=== PATIENT | female | born 1955 | race Caucasian/White ===

== ENCOUNTER 2017-07-12 17:31 | Emergency (ER) | payer OTHER ==
[~2017-07-12] VITALS: Ht 160 cm; Wt 69.6 kg
[~2017-07-12 17:31] MED LIST: ACT30 PO; ALDACTONE25 MG PO; ANT25 PO; ASPIR 8181 MG PO; CAR30 PO; CARVEDILOL3.125 M1 PO; GARLIC1000 MG PO; GLU500 PO; HUMI SC; INVOKANA100 MG PO; K10 PO; LAC PO; LANTI SQ; LASIX40 MG PO; LEVAQUIN750 MG PO; LEVEMIR FLEX100 U/ML SC; LIPI20 PO; MASON NATURAL1000 IU PO; METOPROLOL SUCC25 M1 PO; PLA75 PO; PRAVACHOL20 MG PO; PRI20 PO; PROINH INH; RES30 PO; TRE400 PO; ZES10 PO
[2017-07-12 18:40] VITALS: BP 144/77
== END 2017-07-12 18:41 | disposition home or self-care (01) ==
LOC: ED 17:31
DX: S16.1XXA Strain of muscle, fascia and tendon at neck level, initial encounter (principal); S09.90XA Unspecified injury of head, initial encounter; X58.XXXA Exposure to other specified factors, initial encounter; Y93.89 Activity, other specified; Y99.8 Other external cause status; Y92.89 Other specified places as the place of occurrence of the external cause

== ENCOUNTER 2017-07-14 12:41 | Emergency (ER) | payer OTHER ==
[2017-07-14 14:28] VITALS: BP 158/62
== END 2017-07-14 14:28 | disposition home or self-care (01) ==
LOC: ED 12:41
DX: S13.4XXA Sprain of ligaments of cervical spine, initial encounter (principal); I10 Essential (primary) hypertension; E11.9 Type 2 diabetes mellitus without complications; I25.10 Atherosclerotic heart disease of native coronary artery without angina pectoris; Z90.710 Acquired absence of both cervix and uterus; Z98.890 Other specified postprocedural states; Z88.8 Allergy status to other drugs, medicaments and biological substances; W22.01XA Walked into wall, initial encounter; Y93.02 Activity, running; Y92.89 Other specified places as the place of occurrence of the external cause; Y99.8 Other external cause status
CPT/HCPCS: J1885

== ENCOUNTER 2017-08-29 19:42 | Emergency (ER) | payer OTHER ==
[2017-08-29 21:40] LABS: BASOPHIL % 0.3 % (0-2)
[2017-08-29 21:44] LABS: PLATELET COUNT 456 x10^3mcL (130-400); RED CELL DISTRIBUTION WIDTH 14.6 % (11.5-14.5)
[2017-08-29 21:53] LABS: CALCIUM 9.2 mg/dL (8.5-10.1); CARBON DIOXIDE 29.4 mmol/L (21-32); POTASSIUM SERUM 3.9 mmol/L (3.5-5.1)
[2017-08-29 21:57] LABS: ALBUMIN 3.4 g/dL (3.4-5.0); BILIRUBIN TOTAL 0.37 mg/dL (0.20-1.00)
[2017-08-29 21:58] LABS: TOTAL PROTEIN, SERUM 8.7 g/dL (6.4-8.2)
[2017-08-30 01:30] VITALS: BP 131/74
== END 2017-08-30 01:30 | disposition home or self-care (01) ==
LOC: ED 19:42
PROVIDERS: Emergency Medicine
DX: R07.89 Other chest pain (principal); M54.9 Dorsalgia, unspecified; M54.2 Cervicalgia; M54.12 Radiculopathy, cervical region; R51 Headache; I10 Essential (primary) hypertension; E11.9 Type 2 diabetes mellitus without complications; E78.00 Pure hypercholesterolemia, unspecified; Z79.4 Long term (current) use of insulin; Z88.8 Allergy status to other drugs, medicaments and biological substances
CPT/HCPCS: J1885; J2270; J2405; J7030; Q9967

== ENCOUNTER 2017-12-07 19:34 | Inpatient (IN) | payer OTHER ==
[~2017-12-07] VITALS: Ht 157.5 cm; Wt 63.5 kg
[2017-12-07 19:39] VITALS: Ht 157.5 cm; Wt 63.5 kg
[2017-12-07 21:22] LABS: BASOPHIL % 0.4 % (0-2)
[2017-12-07 21:23] LABS: PLATELET COUNT 419 x10^3mcL (130-400); RED CELL DISTRIBUTION WIDTH 14.7 % (11.5-14.5)
[2017-12-07 21:28] LABS: CALCIUM 8.3 mg/dL (8.5-10.1); CARBON DIOXIDE 28.8 mmol/L (21-32); CHLORIDE SERUM 96 mmol/L (98-107); CREATININE SERUM 0.9 mg/dL (0.6-1.0); GFR1 > 60 mL/min; GLUCOSE SERUM 326 mg/dL (74-106); POTASSIUM SERUM 3.8 mmol/L (3.5-5.1); SODIUM SERUM 135 mmol/L (136-145)
[2017-12-07 21:33] LABS: ALKALINE PHOSPHATASE 99 U/L (46-116); ALT/SGPT 32 U/L (14-59); AST/SGOT 17 U/L (15-37); BILIRUBIN TOTAL 0.2 mg/dL (0.20-1.00); MAGNESIUM 1.8 mg/dL (1.8-2.4); TOTAL PROTEIN, SERUM 7.9 g/dL (6.4-8.2)
[2017-12-07 21:34] LABS: ALBUMIN 3.3 g/dL (3.4-5.0)
[2017-12-07 22:02] LABS: T3 TOTAL 1.2 ng/mL
[2017-12-07 22:17] LABS: FREE T4 1.07 ng/dL (0.76-1.46); FREE THYROXINE INDEX 2.7 ug/dL (1.4-4.5); T4(THYROXINE) 8.1 ug/dL (4.7-13.3)
[2017-12-07] MEDS ORDERED: JANUVIA100 M1 PO (23:18)
[2017-12-07] MEDS ORDERED: NITROGLYCERIN0.4 MG SL (23:18)
[2017-12-07] MEDS ORDERED: PANTOPRAZOLE SO40 M1 PO (23:18)
[2017-12-07] MEDS ORDERED: ISOSORBIDE MONO30 MG PO (23:18)
[2017-12-07] MEDS ORDERED: ROBAXIN-750750 MG PO (23:19)
[2017-12-07] MEDS ORDERED: LOSARTAN POTASS25 M1 PO (23:19)
[2017-12-07] MEDS ORDERED: NEU300 PO (23:19)
[2017-12-07] MEDS ORDERED: HYDRALAZINE HCL25 MG PO (23:19)
[2017-12-07] MEDS ORDERED: LANTUS100 U/ML SQ (23:20)
[2017-12-07] MEDS ORDERED: TRAMADOL HCL50 MG PO (23:20)
[2017-12-08] VITALS (7 sets, daily range): BP systolic 102–147; BP diastolic 53–68
[2017-12-08 01:06] LABS: PHOSPHOROUS 3.3 mg/dL (2.5-4.9)
[2017-12-08 01:11] LABS: CHOLESTEROL/HDL RATIO 5.8
[2017-12-08 06:51] LABS: BASOPHIL % 0.4 % (0-2); PLATELET COUNT 397 x10^3mcL (130-400)
[2017-12-08 07:07] LABS: RED CELL DISTRIBUTION WIDTH 14.7 % (11.5-14.5)
[2017-12-08 07:28] LABS: CALCIUM 8.1 mg/dL (8.5-10.1); CARBON DIOXIDE 27.1 mmol/L (21-32); CHLORIDE SERUM 100 mmol/L (98-107); CREATININE SERUM 0.7 mg/dL (0.6-1.0); GFR1 > 60 mL/min; GLUCOSE SERUM 264 mg/dL (74-106); POTASSIUM SERUM 4.4 mmol/L (3.5-5.1); SODIUM SERUM 136 mmol/L (136-145)
== END 2017-12-08 22:33 | disposition home or self-care (01) | DRG 198 ==
LOC: ED 19:34 → DU 23:09
PROVIDERS: Emergency Medicine; Family Medicine
DX: I25.119 Atherosclerotic heart disease of native coronary artery with unspecified angina pectoris (principal); E11.51 Type 2 diabetes mellitus with diabetic peripheral angiopathy without gangrene; R65.10 Systemic inflammatory response syndrome (SIRS) of non-infectious origin without acute organ dysfunction; E11.65 Type 2 diabetes mellitus with hyperglycemia; E44.1 Mild protein-calorie malnutrition; Z88.8 Allergy status to other drugs, medicaments and biological substances; G90.8 Other disorders of autonomic nervous system; E11.40 Type 2 diabetes mellitus with diabetic neuropathy, unspecified; I10 Essential (primary) hypertension; E78.00 Pure hypercholesterolemia, unspecified; Z90.710 Acquired absence of both cervix and uterus; Z87.891 Personal history of nicotine dependence; R00.8 Other abnormalities of heart beat; J44.9 Chronic obstructive pulmonary disease, unspecified; Z83.3 Family history of diabetes mellitus; E87.1 Hypo-osmolality and hyponatremia; Z68.27 Body mass index [BMI] 27.0-27.9, adult
CPT/HCPCS: 82962; 83880; 84439; J1815; J2270; J2405; J3475; J7030; J8597; Q0092

== ENCOUNTER 2018-05-10 17:38 | Inpatient (IN) | payer OTHER ==
[~2018-05-10] VITALS: Ht 157.5 cm; Wt 70.9 kg
[~2018-05-10 17:38] MED LIST changes: +HYDRALAZINE HCL25 MG PO; +ISOSORBIDE MONO30 MG PO; +JANUVIA100 M1 PO; +LANTUS100 U/ML SQ; +LOSARTAN POTASS25 M1 PO; +NEU300 PO; +NITROGLYCERIN0.4 MG SL; +PANTOPRAZOLE SO40 M1 PO; +ROBAXIN-750750 MG PO; +TRAMADOL HCL50 MG PO
[2018-05-10 17:41] VITALS: Ht 157.5 cm; Wt 70.9 kg
[2018-05-10 19:52] LABS: UA SPECIFIC GRAVITY 1.025 (1.005-1.035); microscopic required? YES; urine erythrocyte NEGATIVE (NEGATIVE)
[2018-05-10 20:20] LABS: CALCIUM 9.2 mg/dL (8.5-10.1); CARBON DIOXIDE 28.2 mmol/L (21-32); CHLORIDE SERUM 99 mmol/L (98-107); CREATININE SERUM 0.7 mg/dL (0.6-1.0); GFR1 > 60 mL/min; GLUCOSE SERUM 189 mg/dL (74-106); POTASSIUM SERUM 3.8 mmol/L (3.5-5.1); SODIUM SERUM 137 mmol/L (136-145)
[2018-05-10 20:25] LABS: ALBUMIN 3.5 g/dL (3.4-5.0); ALKALINE PHOSPHATASE 119 U/L (46-116); ALT/SGPT 36 U/L (14-59); AST/SGOT 18 U/L (15-37); BASOPHIL % 0.4 % (0-2); BILIRUBIN TOTAL 0.36 mg/dL (0.20-1.00); LIPASE 120 IU/L (73-393); PLATELET COUNT 394 x10^3mcL (130-400)
[2018-05-10 20:26] LABS: TOTAL PROTEIN, SERUM 8.3 g/dL (6.4-8.2)
[2018-05-10] MEDS ORDERED: ZETIA10 M1 PO (21:20)
[2018-05-10] MEDS ORDERED: REPATHA SY140 MG/1 M SQ (21:20)
[2018-05-10] MEDS ORDERED: ISOSORBIDE MONO30 MG PO (21:21)
[2018-05-10] MEDS ORDERED: HYDRALAZINE HCL25 MG PO (21:21)
[2018-05-10 21:46] LABS: MAGNESIUM 1.9 mg/dL (1.8-2.4); PHOSPHOROUS 3.1 mg/dL (2.5-4.9)
[2018-05-10 21:47] LABS: CHOLESTEROL/HDL RATIO 3.2
[2018-05-10 21:50] LABS: T3 TOTAL 1.13 ng/mL
[2018-05-10 21:57] LABS: FREE T4 1.01 ng/dL (0.76-1.46); FREE THYROXINE INDEX 2.6 ug/dL (1.4-4.5); T4(THYROXINE) 7.5 ug/dL (4.7-13.3)
[2018-05-10 21:59] VITALS: BP 147/55
[2018-05-10 23:00] VITALS: BP 147/55
[2018-05-11 01:00] LABS: AMPHETAMINE QUAL UR NONE DETECTED (See below)
[2018-05-11 04:40] LABS: BASOPHIL % 0.3 % (0-2); PLATELET COUNT 379 x10^3mcL (130-400); RED CELL DISTRIBUTION WIDTH 13.8 % (11.5-14.5)
[2018-05-11 05:14] LABS: CALCIUM 8.5 mg/dL (8.5-10.1); CARBON DIOXIDE 27.5 mmol/L (21-32); CHLORIDE SERUM 105 mmol/L (98-107); CREATININE SERUM 0.7 mg/dL (0.6-1.0); GFR1 > 60 mL/min; GLUCOSE SERUM 160 mg/dL (74-106); POTASSIUM SERUM 4.3 mmol/L (3.5-5.1); SODIUM SERUM 142 mmol/L (136-145)
[2018-05-11 09:36] VITALS: BP 141/68
[2018-05-11 13:25] VITALS: BP 133/69
[2018-05-11 16:37] VITALS: BP 101/56
[2018-05-11 20:59] VITALS: BP 127/65
[2018-05-12 06:10] VITALS: BP 140/61
[2018-05-12 06:24] LABS: BASOPHIL % 0.4 % (0-2); PLATELET COUNT 365 x10^3mcL (130-400); RED CELL DISTRIBUTION WIDTH 14.3 % (11.5-14.5)
[2018-05-12 08:40] VITALS: BP 139/71
[2018-05-12 11:35] VITALS: BP 144/77
[2018-05-12 16:58] VITALS: BP 116/63
[2018-05-12 17:39] VITALS: BP 116/63
== END 2018-05-12 18:22 | disposition home or self-care (01) | DRG 198 ==
LOC: ED 17:38 → DU 21:09
PROVIDERS: Emergency Medicine; Family Medicine
DX: I25.119 Atherosclerotic heart disease of native coronary artery with unspecified angina pectoris (principal); N17.0 Acute kidney failure with tubular necrosis; E11.51 Type 2 diabetes mellitus with diabetic peripheral angiopathy without gangrene; J44.1 Chronic obstructive pulmonary disease with (acute) exacerbation; E78.5 Hyperlipidemia, unspecified; G47.33 Obstructive sleep apnea (adult) (pediatric); E11.65 Type 2 diabetes mellitus with hyperglycemia; E78.1 Pure hyperglyceridemia; I25.2 Old myocardial infarction; Z79.4 Long term (current) use of insulin; Z68.28 Body mass index [BMI] 28.0-28.9, adult; Z95.5 Presence of coronary angioplasty implant and graft; Z86.73 Personal history of transient ischemic attack (TIA), and cerebral infarction without residual deficits; I11.0 Hypertensive heart disease with heart failure; E78.00 Pure hypercholesterolemia, unspecified; Z90.710 Acquired absence of both cervix and uterus; Z87.891 Personal history of nicotine dependence; S90.561A Insect bite (nonvenomous), right ankle, initial encounter; W57.XXXA Bitten or stung by nonvenomous insect and other nonvenomous arthropods, initial encounter; Y93.89 Activity, other specified; Y92.89 Other specified places as the place of occurrence of the external cause; Y99.8 Other external cause status; K21.9 Gastro-esophageal reflux disease without esophagitis; Z83.3 Family history of diabetes mellitus; I25.5 Ischemic cardiomyopathy; K76.0 Fatty (change of) liver, not elsewhere classified; K82.4 Cholesterolosis of gallbladder
CPT/HCPCS: 83880; 84439; 94150; A9500; J1815; J2785; J7030; J7613; J7620; J7644; Q0092; Q0162; Q0163

== ENCOUNTER 2018-06-12 08:27 | Inpatient (IN) | payer OTHER ==
[~2018-06-12] VITALS: Ht 157.5 cm; Wt 70.0 kg
[~2018-06-12 08:27] MED LIST changes: +REPATHA SY140 MG/1 M SQ; +ZETIA10 M1 PO
[2018-06-12 08:32] VITALS: Ht 157.5 cm; Wt 70.0 kg
[2018-06-12 09:17] LABS: BASOPHIL % 0.5 % (0-2); PLATELET COUNT 371 x10^3mcL (130-400); RED CELL DISTRIBUTION WIDTH 14.4 % (11.5-14.5)
[2018-06-12 09:46] LABS: T3 TOTAL 1.12 ng/mL
[2018-06-12 09:56] LABS: CALCIUM 8.5 mg/dL (8.5-10.1); CARBON DIOXIDE 24.6 mmol/L (21-32); CHLORIDE SERUM 103 mmol/L (98-107); CREATININE SERUM 0.8 mg/dL (0.6-1.0); GFR1 > 60 mL/min; GLUCOSE SERUM 180 mg/dL (74-106); SODIUM SERUM 140 mmol/L (136-145)
[2018-06-12 10:01] LABS: ALBUMIN 3.3 g/dL (3.4-5.0); ALKALINE PHOSPHATASE 105 U/L (46-116); ALT/SGPT 43 U/L (14-59); AST/SGOT 28 U/L (15-37); BILIRUBIN TOTAL 0.58 mg/dL (0.20-1.00); CHOLESTEROL 104 mg/dL (<200); CHOLESTEROL/HDL RATIO 2.7; HDL CHOLESTEROL 38 mg/dL (40-60); LIPASE 82 IU/L (73-393); TOTAL PROTEIN, SERUM 7.8 g/dL (6.4-8.2); TRIGLYCERIDES 191 mg/dL (<150)
[2018-06-12 10:16] LABS: FREE T4 0.99 ng/dL (0.76-1.46); FREE THYROXINE INDEX 2.7 ug/dL (1.4-4.5); T4(THYROXINE) 8.1 ug/dL (4.7-13.3)
[2018-06-12 11:58] LABS: PHOSPHOROUS 3.6 mg/dL (2.5-4.9)
[2018-06-12 13:18] VITALS: BP 122/43
[2018-06-12 13:43] VITALS: BP 117/50
[2018-06-12 14:57] LABS: UA SPECIFIC GRAVITY 1.025 (1.005-1.035); microscopic required? YES; urine erythrocyte TRACE (NEGATIVE)
[2018-06-12 17:05] VITALS: BP 118/72
[2018-06-12 20:27] VITALS: BP 132/75
[2018-06-13 05:29] VITALS: BP 122/68
[2018-06-13 06:39] LABS: BASOPHIL % 0.5 % (0-2); PLATELET COUNT 378 x10^3mcL (130-400); RED CELL DISTRIBUTION WIDTH 13.9 % (11.5-14.5)
[2018-06-13 06:52] LABS: CALCIUM 8.5 mg/dL (8.5-10.1); CARBON DIOXIDE 26.5 mmol/L (21-32); CHLORIDE SERUM 106 mmol/L (98-107); CREATININE SERUM 0.6 mg/dL (0.6-1.0); GFR1 > 60 mL/min; GLUCOSE SERUM 107 mg/dL (74-106); POTASSIUM SERUM 3.7 mmol/L (3.5-5.1); SODIUM SERUM 140 mmol/L (136-145)
[2018-06-13 09:09] VITALS: BP 133/79
[2018-06-13] MEDS ORDERED: TOP50 PO (11:45)
[2018-06-13 12:10] VITALS: BP 133/79
[2018-06-13 12:15] VITALS: BP 106/57
== END 2018-06-13 13:45 | disposition home or self-care (01) | DRG 207 ==
LOC: ED 08:27 → DU 10:23
PROVIDERS: Internal Medicine; Specialist
DX: R00.8 Other abnormalities of heart beat (principal); I11.0 Hypertensive heart disease with heart failure; I50.22 Chronic systolic (congestive) heart failure; E11.65 Type 2 diabetes mellitus with hyperglycemia; D72.829 Elevated white blood cell count, unspecified; I25.10 Atherosclerotic heart disease of native coronary artery without angina pectoris; I25.5 Ischemic cardiomyopathy; E78.5 Hyperlipidemia, unspecified; G47.30 Sleep apnea, unspecified; E44.1 Mild protein-calorie malnutrition; Z88.8 Allergy status to other drugs, medicaments and biological substances; I25.2 Old myocardial infarction; E78.00 Pure hypercholesterolemia, unspecified; Z90.710 Acquired absence of both cervix and uterus; Z98.61 Coronary angioplasty status; Z86.73 Personal history of transient ischemic attack (TIA), and cerebral infarction without residual deficits; Z68.27 Body mass index [BMI] 27.0-27.9, adult
CPT/HCPCS: 83880; 84439; J1644; J1815; J3010; J3490; J7030; Q0092

== ENCOUNTER 2018-10-13 17:58 | Emergency (ER) | payer OTHER ==
[~2018-10-13] VITALS: Ht 157.5 cm; Wt 70.8 kg
[~2018-10-13 17:58] MED LIST changes: +TOP50 PO
[2018-10-13 18:13] VITALS: Ht 157.5 cm; Wt 70.8 kg
[2018-10-13 19:46] LABS: BASOPHIL % 0.8 % (0-2); PLATELET COUNT 369 x10^3mcL (130-400); RED CELL DISTRIBUTION WIDTH 13.9 % (11.5-14.5)
[2018-10-13 20:14] LABS: CALCIUM 8.7 mg/dL (8.5-10.1); CARBON DIOXIDE 27.5 mmol/L (21-32); CHLORIDE SERUM 101 mmol/L (98-107); CREATININE SERUM 0.7 mg/dL (0.6-1.0); GFR1 > 60 mL/min; GLUCOSE SERUM 157 mg/dL (74-106); POTASSIUM SERUM 3.4 mmol/L (3.5-5.1); SODIUM SERUM 135 mmol/L (136-145)
[2018-10-13 20:19] LABS: ALBUMIN 3.4 g/dL (3.4-5.0); ALKALINE PHOSPHATASE 123 U/L (46-116); ALT/SGPT 39 U/L (14-59); AST/SGOT 24 U/L (15-37); BILIRUBIN TOTAL 0.27 mg/dL (0.20-1.00); TOTAL PROTEIN, SERUM 8.1 g/dL (6.4-8.2)
[2018-10-13 21:37] VITALS: BP 117/75
== END 2018-10-13 21:37 | disposition home or self-care (01) ==
LOC: ED 17:58
PROVIDERS: Emergency Medicine
DX: N39.0 Urinary tract infection, site not specified (principal); R91.1 Solitary pulmonary nodule; I10 Essential (primary) hypertension; E11.9 Type 2 diabetes mellitus without complications; I25.2 Old myocardial infarction; E78.00 Pure hypercholesterolemia, unspecified; Z90.710 Acquired absence of both cervix and uterus; Z88.8 Allergy status to other drugs, medicaments and biological substances
CPT/HCPCS: 83880; 85378; J1885

== ENCOUNTER 2019-04-05 14:37 | Emergency (ER) | payer OTHER ==
[~2019-04-05] VITALS: Ht 162.6 cm; Wt 70.3 kg
[~2019-04-05 14:37] MED LIST changes: +ISOSORBIDE MONO60 MG PO
[2019-04-05 14:39] VITALS: Ht 162.6 cm; Wt 70.3 kg
[2019-04-05 16:38] LABS: BASOPHIL % 0.3 % (0-2); PLATELET COUNT 400 x10^3mcL (130-400); RED CELL DISTRIBUTION WIDTH 13.7 % (11.5-14.5)
[2019-04-05 16:58] LABS: CALCIUM 8.8 mg/dL (8.5-10.1); CHLORIDE SERUM 104 mmol/L (98-107); CREATININE SERUM 0.7 mg/dL (0.6-1.0); GFR1 > 60 mL/min; GLUCOSE SERUM 89 mg/dL (74-106); POTASSIUM SERUM 3.6 mmol/L (3.5-5.1); SODIUM SERUM 141 mmol/L (136-145)
[2019-04-05 17:03] LABS: ALKALINE PHOSPHATASE 103 U/L (46-116); ALT/SGPT 37 U/L (14-59); AST/SGOT 19 U/L (15-37); BILIRUBIN TOTAL 0.3 mg/dL (0.20-1.00); LIPASE 64 IU/L (73-393); TOTAL PROTEIN, SERUM 7.5 g/dL (6.4-8.2)
[2019-04-05 17:05] LABS: ALBUMIN 3.3 g/dL (3.4-5.0)
[2019-04-05 18:52] VITALS: BP 130/68
== END 2019-04-05 18:52 | disposition home or self-care (01) ==
LOC: ED 14:37
PROVIDERS: Emergency Medicine
DX: N39.0 Urinary tract infection, site not specified (principal); R42 Dizziness and giddiness; R07.89 Other chest pain; I10 Essential (primary) hypertension; E11.9 Type 2 diabetes mellitus without complications; I25.2 Old myocardial infarction; E78.00 Pure hypercholesterolemia, unspecified; Z90.710 Acquired absence of both cervix and uterus; Z88.8 Allergy status to other drugs, medicaments and biological substances
CPT/HCPCS: J0696; J1885; J2405; J7030; J8597; Q0092

== ENCOUNTER 2019-05-17 12:34 | Inpatient (IN) | payer OTHER ==
[~2019-05-17] VITALS: Ht 157.5 cm; Wt 69.9 kg
--- NOTE | 2019-05-17 13:07 | NUR ---
PT HERE FOR ABD PAIN 10/. N/V STARTED LAST NIGHT. PT HAS ROUND RIGID ABD FIRM TO TOUCH WITH 10/10 TENDERNESS. PT HAS HX OF CURRENT HERNIA. DENIES PAIN WITH URINATION AND NO C/O DIARRHEA OR CONSTIPATION. PT ARRIVES ALERT AND ORIENTED WITH NO DISTRESS AND VSS. URINE OBTAINED.
[2019-05-17 13:12] LABS: BASOPHIL % 0.3 % (0-2); PLATELET COUNT 373 x10^3mcL (130-400); RED CELL DISTRIBUTION WIDTH 13.9 % (11.5-14.5)
[2019-05-17 13:24] LABS: CALCIUM 8.7 mg/dL (8.5-10.1); CARBON DIOXIDE 25.4 mmol/L (21-32); CHLORIDE SERUM 101 mmol/L (98-107); CREATININE SERUM 0.9 mg/dL (0.6-1.0); GFR1 > 60 mL/min; GLUCOSE SERUM 321 mg/dL (74-106); POTASSIUM SERUM 4.6 mmol/L (3.5-5.1); SODIUM SERUM 136 mmol/L (136-145)
[2019-05-17 13:28] LABS: ALKALINE PHOSPHATASE 116 U/L (46-116); ALT/SGPT 36 U/L (14-59); AMYLASE 34 U/L (25-115); AST/SGOT 18 U/L (15-37); BILIRUBIN TOTAL 0.35 mg/dL (0.20-1.00); LIPASE 87 IU/L (73-393); TOTAL PROTEIN, SERUM 7.3 g/dL (6.4-8.2)
--- NOTE | 2019-05-17 13:38 | NUR ---
PT LEFT FOR CT
--- NOTE | 2019-05-17 14:01 | NUR ---
PT BACK FROM CT
--- NOTE | 2019-05-17 15:23 | NUR ---
DR GARVEY AT BEDSIDE FOR REEVAL
--- NOTE | 2019-05-17 15:52 | NUR ---
REPORT TO JAKUB
[2019-05-17 16:19] VITALS: BP 144/77
--- NOTE | 2019-05-17 16:28 | NUR ---
RECEIVED PT FROM ER, PT ADMIT FOR INTRACTABLE BILIARY COLIC, PT IS A/O X4, VERBAL RESPONSIVE, ABLE TO TELL WHAT HE NEEDS. LUNG CLEAR BILATERAL, NO COUGH, NO SOB, DENY ANY CHEST PAIN OR DISCOMFORT, BOWEL SOUND PRESENT ALL 4 QUADRANTS, DISTENTED. C/O HAS BEEN NAUSEA FOR 2 WEEKS, PEDAL PULSE PRESENT BOTH FEET, NO EDEMA, IV AT LEFT HAND, NO LEAKING, NO INFILTRAIOTN. ALL ADLS ASSIST, ALL NEED MET, CALL LIGHT IN REACH, WILL CONTINUE TO MONTIOR.
[2019-05-17 16:52] LABS: MAGNESIUM 1.9 mg/dL (1.8-2.4); PHOSPHOROUS 3.9 mg/dL (2.5-4.9)
[2019-05-17 16:55] LABS: CHOLESTEROL/HDL RATIO 5.1
[2019-05-17 17:00] LABS: T3 TOTAL 1.13 ng/mL
--- NOTE | 2019-05-17 17:23 | NUR ---
PT C/O OF ABD PAIN 07/20. GAVE MORPHINE ORDERED. WILL CONTINUE TO MONITOR.
[2019-05-17 17:27] LABS: FREE T4 0.85 ng/dL (0.76-1.46); FREE THYROXINE INDEX 2.4 ug/dL (1.4-4.5); T4(THYROXINE) 7.1 ug/dL (4.7-13.3)
--- NOTE | 2019-05-17 17:40 | NUR ---
PT ASLEEP BUT AROUSABLE. WILL CONTINUE TO MONITOR.
--- NOTE | 2019-05-17 18:17 | NUR ---
PT RESTING IN BED TALKING WITH FAMILY MEMBERS. NO ACUTE DISTRESS NOTED. HEPLOCK PATENT. CALL LIGHT WITHIN REACH. WILL BE ENDORSED.
--- NOTE | 2019-05-17 19:56 | NUR ---
PAGED DR MO, PT C/O SEV ABDL PAIN SCALED 9/10 PER PAIN ASSESSMENT MORPHINE IV GIVEN EARLIER, BUT OFFERS NO RELIEF PT WANTED A STRONGER PAIN MEDS, ALSO C/O OF NAUSEA NO VOMITING, WILL MEDICATE PRN FOR NAUSEA, PT REMAINED NPO, WILL CONT TO MONITOR.
[2019-05-17 20:46] VITALS: BP 156/65
[2019-05-17 22:06] LABS: microscopic required? YES; urine erythrocyte NEGATIVE (NEGATIVE)
--- NOTE | 2019-05-17 22:06 | NUR ---
PAGED DR MO RE PT'S CONCERNS ABOUT MEDICATION AND PT IS USING CPAP AT HOME FOR SLEEP APNEA, AND SHE'S REFUSING SOME MEDS COZ IT WAS DC'D ALREADY BY PCP DURING LAST MD'S VISIT, AWAITING FOR CALL BACK.
--- NOTE | 2019-05-17 22:10 | NUR ---
SPOKE TO DR MO, RELAYED PT'S CONCERNS.
[2019-05-17 22:14] LABS: AMPHETAMINE QUAL UR NONE DETECTED (See below)
[2019-05-17 23:00] VITALS: BP 156/65
--- NOTE | 2019-05-18 00:30 | NUR ---
PT ASLEEP, BIPAP ON, CPAP 4, RESP 12, F102 21% SETTING DONE BY RT, ИВАН WELL NO DISTRESS, IVF INFUSING WELL ORDERED, VISUAL CHECKED AT INTERVALS.
[2019-05-18 06:11] VITALS: BP 123/55
--- NOTE | 2019-05-18 06:28 | NUR ---
BIPAP REMOVED BY RT, SLEPT WELL NO DISTRESS, DENIES PAIN, TORADAL IVP HELPING FOR ABDL PAIN PER PT, REMAINED NPO, STILL AWAITING FOR SURGEON.
[2019-05-18 07:11] LABS: BASOPHIL % 0.4 % (0-2); RED CELL DISTRIBUTION WIDTH 13.8 % (11.5-14.5)
[2019-05-18 07:15] LABS: PLATELET COUNT 401 x10^3mcL (130-400)
[2019-05-18 07:25] LABS: CALCIUM 8.6 mg/dL (8.5-10.1); CARBON DIOXIDE 26.3 mmol/L (21-32); CHLORIDE SERUM 104 mmol/L (98-107); CREATININE SERUM 0.7 mg/dL (0.6-1.0); GFR1 > 60 mL/min; GLUCOSE SERUM 83 mg/dL (74-106); POTASSIUM SERUM 3.7 mmol/L (3.5-5.1); SODIUM SERUM 142 mmol/L (136-145)
--- NOTE | 2019-05-18 08:17 | NUR ---
AAO TIMES 4. MED SURG PATIENT. LUNGS CTA. NO SOB. O2 SAT ON RA 95%. BS'S ACTIVE TIMES 4. RAMIREZ STRONG. IV SITE CDI. COOPERATIVE. NPO EXCEPT MEDICATIONS. PERIPHERAL PULSES PALPABLE. NO EDEMA. NO C/O PAIN.
[2019-05-18 09:23] VITALS: BP 126/77
[2019-05-18] MEDS ORDERED: FUROSEMIDE20 MG PO (10:49)
[2019-05-18] MEDS ORDERED: ROBAXIN500 MG PO (10:53)
[2019-05-18] MEDS ORDERED: NEU300 PO (10:54)
[2019-05-18] MEDS ORDERED: PROTONIX40 MG PO (10:55)
[2019-05-18] MEDS ORDERED: NITROGLYCERIN0.4 MG SL (10:56)
[2019-05-18 15:04] VITALS: Ht 157.5 cm; Wt 69.9 kg
[2019-05-18 17:40] VITALS: BP 136/67
--- NOTE | 2019-05-18 17:50 | NUR ---
AAO TIMES 4. MED SURG PATIENT. NO C/O PAIN AT THIS TIME. SHE HAD MORPHINE 2 MG IVP AT 1454 AND TORADOL 30 MG IVP AT 1731 FOR C/O STOMACH, AND BACK PAIN. NPO. WAITING FOR DR MULLIGAN TO CONSULT HER CARDIAC CRAFT FOR DR AVALOS FOR SURGERY CLEARANCE. DR MULLIGAN HASNT ARRIVED YET, DR TREVINO WAS NOTIFIED AND HE IS CALLING DR MULLIGAN TO INQUIRE.
--- NOTE | 2019-05-18 18:12 | NUR ---
DR BEGUMED AWARE THAT HER BLOOD GLUCOSE WAS 87 AT 1130 AND 79 AT 1630. I ALSO INQUIRED TO IF DR MULLIGAN WILL BE COMING, HE SAID HE DID TEXT HIM AND HE ACKNOWLED HIS TEXT TO HIM CONSULTING THIS PATIENT FOR CARDIAC CLEARANCE. HE SAID HE WOULD INCREASE THE D5NS RATE AND ALSO HOLD THE LONG ACTING INSULIN TONIGHT.
--- NOTE | 2019-05-18 19:50 | NUR ---
EKG AND CARDIAC ECHO ORDERED FOR CLEARANCE, PT REMAINED NPO, DENIES ABDL PAIN NAUSEA OR VOMITING, NO DIARRHEA, WITH ABDL DISTENTION, NON TENDER, DURING INITIAL ROUNDS NO DISTRESS LUNGS CTA, IVF D5NS INFUSING WELL ORDERED, IV ACCESS LAC PATENT NON INFIL, SCD'S FOR DVT PROPHYLAXIS, FAMILY AT BEDSIDE FOR VISIT UPDATED CURRENT TX PLAN, SHIFT ASSESSMENT DONE, CONT TO MONITOR.
[2019-05-18 21:19] VITALS: BP 134/75
--- NOTE | 2019-05-18 22:10 | NUR ---
PATIENT REFUSED CPAP STATING THAT SHE DOES NOT LIKE THE MACHINE.
--- NOTE | 2019-05-18 22:44 | NUR ---
DR AVALOS SURGEON CAME FOR CONSULT TALKED TO THE PT AND DISCUSSED RE PLAN SURGERY AFTER CARDIAC CLEARANCE, POSSIBLE ON WEDNESDAY AM, PT AGREES WITH THE PLAN, PER SURGEON PT CAN EAT NOW AND HAVE NPO POST MN ON WED, DR MO MADE AWARE AND WILL PUT THE ORDER.
[2019-05-19 05:58] VITALS: BP 110/57
--- NOTE | 2019-05-19 06:17 | NUR ---
SLEPT WELL DURING THE SHIFT, C/O ABDL PAIN WHEN AWAKE 04/19 PER ASSESSMENT NOT IN ANY DISTRESS, NO NAUSEA OR VOMITING, MORPHINE IVP GIVEN PER PRN ORDER, PT BS 268 COVERED WITH 9UNITS REG INSU, LANTUS NIGHT DOSE WAS ON HOLD PER MD'S ORDER, WILL ENDORSE TO INCOMING SHIFT FOR FOLLOW UP CARE.
[2019-05-19 06:41] LABS: BASOPHIL % 0.3 % (0-2); PLATELET COUNT 360 x10^3mcL (130-400); RED CELL DISTRIBUTION WIDTH 13.9 % (11.5-14.5)
[2019-05-19 07:03] LABS: CALCIUM 8.4 mg/dL (8.5-10.1); CARBON DIOXIDE 26.8 mmol/L (21-32); CHLORIDE SERUM 106 mmol/L (98-107); CREATININE SERUM 0.7 mg/dL (0.6-1.0); GFR1 > 60 mL/min; GLUCOSE SERUM 239 mg/dL (74-106); PHOSPHOROUS 3.3 mg/dL (2.5-4.9); POTASSIUM SERUM 4.2 mmol/L (3.5-5.1); SODIUM SERUM 142 mmol/L (136-145)
--- NOTE | 2019-05-19 07:30 | NUR ---
PATIENT IS SITTING UP IN BED, AWAKE, ALERT AND ORIENTED. DENIES ANY PAIN OR DISCOMOFRT. IV SITE LEFT HAND SWOLLEN, IVF STOPPED AND WILL RESTART A NEW IV. RESP EVEN AND UNLABORED, LUNGS CLEAR ON ROOM AIR. PATIENT AMBULATED TO THE BATHROOM WITH STEADY GAIT. NO ACUTE DISTRESS NOTED. PLAN OF CARE DISCUSSED.
--- NOTE | 2019-05-19 08:00 | NUR ---
NEW IV STARTED ON RIGHT HAND. IVF INFUSING WELL.
[2019-05-19 08:04] VITALS: BP 125/56
--- NOTE | 2019-05-19 13:31 | NUR ---
PATIENT SITTING UP IN BED TALKING ON PHONE AND FAMILY MEMBERS AT BEDSIDE. CONTINUES TO DENY ANY PAIN OR DISCOMFORT. IVF INFUSING WELL. NO CHANGE IN CONDITION NOTED. WILL CONTINUE TO MONITOR.
--- NOTE | 2019-05-19 15:04 | NUR ---
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 Expected wt fluctuation w/ Lasix regimen. Visited pt bedside, family present. Pt and family states has been given diet education on her DM by Tim in the discharge dept. Family states pt is noncompliant w/ her diet in the past. Provided and explained handout on NCM Gallbladder Nutriton Therapy & Type 2 Diabetes Nutrition Therapy; explained portion sizes, consistent meals, CHO counting and intake, fat allowance, fiber intake, and appropriate examples of foods recommended and not recommended. Pt's daughter seems eager to learn more about pt's condition r/t monitors her meal intake and is present w/ her most of the day. Per pt's daughter, pt also was recently diagnosed w/ diverticulitis. Pt c/o some swallowing difficulty, states sometimes food gets stuck in throat and has to spit it out - pt states she watches what she eats r/t swallowing difficulty. Spoke w/ DENTAL HYGIENE INSTRUCTOR Denise regarding diet and texture, confirmed. Problem with: Nausea Problems with: Chewing: No Swallowing: Yes Current appetite: good Recent wt change: No %wt change: No Vitamin/Supplement use: MVM Special diet at home: Regular Physical activity: gym 7days/wk Nutrition education given (specify specific nutrition education and handout given): NCM Type 2 Diabetes Nutrition Therapy & Gallbladder Nutrition Therapy - consistent CHO intake, portions sizes, CHO counting, fat allowance, fiber intake, appropriate examples of foods.Also explained fucntion of pancreas, gallbladder, fiber and protein intake, and CHO and BG. Food-drug interactions? Education given? NCM Type 2 Diabetes Nutrition Therapy & Gallbladder Nutrition Therapy Estimated Nutritional Needs Based on current body weight (70 kg) Energy: 4814-1236 kcal/day (25-30 kcal/kg for maintenance) Protein: 70-84 g/day (1.0-1.2 g/kg for maintenance) Fluid: 6137-5863 mL/day (1 mL/kcal) or per MD Nutrition Diagnosis: 1. Swallowing difficulty r/t pt reported food stuck in throat, doesn't all of food AEB PO intake 60% 2. Limited adherence to nutrition-related recommendations r/t pt noncompliant w/ previous education on appropriate diet to manager document control DM, CAD AEB readmission to hospital, pt admitting to noncompliance w/ diet 3. Food- and nutrtion-related knowledge deficit r/t poor pt recall of appropriate foods to eat AEB intractable biliary colic, abd pain upon eating Intervention 1. Add low fat diet to pt's [facility] diet order 2. Consider mechanical soft texture for diet order r/t pt c/o swallowing difficulty 3. Spoke w/ DENTAL HYGIENE INSTRUCTOR Denise regarding recommendation(s), confirmed. Monitor/Evaluate Goal: PO intake at least 75% of estimated needs Monitor: PO intake, Labs, GI function F/U in 3-5 days as moderate risk 05/22-05/24
--- NOTE | 2019-05-19 15:04 | NUR ---
Recommendations: 1. Add low fat diet to pt's [facility] diet order 2. Consider mechanical soft texture for diet order r/t pt c/o swallowing difficulty 3. Spoke w/ CRYPTOGRAPHIC MACHINE OPERATOR Denise regarding recommendation(s), confirmed.
[2019-05-19 16:15] VITALS: BP 124/60
--- NOTE | 2019-05-19 18:00 | NUR ---
I HAVE REVIEWED THE DATA COLLECTION BY HEMATOLOGY SUPERVISOR (NAME):LEON PATEL ENTERED ON (DATE/TIME): I CONCUR WITH THE DATA AND ANY EXCEPTIONS OR COMMENTS ARE LISTED BELOW: PATIENT'S PLAN OF CARE WAS DISCUSSED AND REVIEWED WITH HEMATOLOGY SUPERVISOR:
--- NOTE | 2019-05-19 18:02 | NUR ---
PATIENT SITTING UP ON THE SIDE OF THE BED EATING DINNER TRAY. FAMILY MEMBER AT BEDSIDE. ECHO DONE THIS AFTERNOON ORDERED. PATIENT C/O HAVING BACK PAIN AND A H/A 10/10 ON THE PAIN SCALE. PATIENT TO BE MEDICATED WITH MS IV BY LANCE ESTRADA AT THIS TIME. WILL MONITOR FOR EFFECT.
--- NOTE | 2019-05-19 18:13 | NUR ---
C/O 07/20 PAIN TO BACK AND KULKARNI MEDICATED WITH MORPHINE PER EMAR.
--- NOTE | 2019-05-19 19:34 | NUR ---
RECEIVED PT FROM PREVIOUS SHIFT. PT A/OX4. DENIES SOB ON RA. DENIES PAIN. IV PATENT AND INFUSING D5NS AT 60ML/HR WITH NO S/S OF INFILTRATION. CALL LIGHT WITHIN REACH, BED IN LOW POSITION. FAMILY AT BEDSIDE. WILL CONTINUE TO MONITOR.
[2019-05-19 20:51] VITALS: BP 133/58
--- NOTE | 2019-05-19 22:09 | NUR ---
PT C/O 07/20 MIGRAINE. MORPHINE GIVEN IVP PER EMAR. WILL CONTINUE TO MONITOR.
--- NOTE | 2019-05-19 22:52 | NUR ---
RECEIVED CALL FROM DR AVALOS. ORDER RECEIVED TO PREPARE PATIENT FOR LAP ALEXANDRA AT 0730 05/20/[address]. DR MO MADE AWARE. WILL OBTAIN CONSENT ONCE PATIENT IS INFORMED ABOUT PROCEDURE.
--- NOTE | 2019-05-20 02:39 | NUR ---
PT RESTING IN NO ACUTE DISTRESS. RR EVEN AND UNLABORED. IV PATENT. CALL LIGHT WITHIN REACH, BED IN LOW POSITION. WILL CONTINUE TO MONITOR.
--- NOTE | 2019-05-20 05:40 | NUR ---
PRE OP BATH GIVEN AT THIS TIME.
[2019-05-20 06:07] VITALS: BP 116/50
[2019-05-20 06:55] LABS: BASOPHIL % 0.4 % (0-2); PLATELET COUNT 363 x10^3mcL (130-400); RED CELL DISTRIBUTION WIDTH 13.9 % (11.5-14.5)
[2019-05-20 07:04] LABS: CALCIUM 8.6 mg/dL (8.5-10.1); CARBON DIOXIDE 21.8 mmol/L (21-32); CHLORIDE SERUM 103 mmol/L (98-107); CREATININE SERUM 0.7 mg/dL (0.6-1.0); GFR1 > 60 mL/min; GLUCOSE SERUM 299 mg/dL (74-106); POTASSIUM SERUM 4.2 mmol/L (3.5-5.1); SODIUM SERUM 138 mmol/L (136-145)
--- NOTE | 2019-05-20 07:20 | NUR ---
SEEN IN BED AAOX4. NO RESP DISTRESS NOTED ON ROOM AIR. BREATHING E/U ON ROOM AIR. FAMILY MEMBERS AT BEDSIDE. KEPT NPO FOR SURGERY TODAY IN AM. PATIENT MADE AWARE. SURGICAL CHECKE LISTS DONE BY PREVIOUS RN. DENIES PAIN OR NAUSEA AT THIS TIME. STATED JUST HEADACHE AFTER MORPHINE GIVEN LAST NIGHT. REFUSED TYLENOL OFFERRED. CALL LIGHT PLACED WITHIN EASY REACH. SIDERAILS UP X2.
--- NOTE | 2019-05-20 07:35 | NUR ---
PER OR NURSE JIGNESH STATED THAT DOCTOR BAILEY WILL TALK TO PATIENT ABOUT SURGERY DOWNSTAIR AT OR ROOM. PATIENT AND HER FAMILY MADE AWARE.
[2019-05-20 07:45] VITALS: BP 119/60
--- NOTE | 2019-05-20 07:55 | NUR ---
OFF FLOOR VIA GUERNEY, S/L TO RIGHT HAND FLUSHED WITH NS PATENT AND INTACT.
--- NOTE | 2019-05-20 10:48 | NUR ---
RECEIVED A REPORT FROM SEAN EGAN.
[2019-05-20 11:14] VITALS: BP 118/63
--- NOTE | 2019-05-20 11:14 | NUR ---
RECEIVED BACK FROM RECOVERY ROOM. S/P LAPAROSCOPIC CHOLECYSTECTOMY. SEEN DROWSY, EYES CLOSED, EASILY TO AROUSE. BREATHING E/U ON 4L N/C, O2SAT 94%, BP 118/63, HR 67, RR 14, AFEBRILE. SURGICAL INCISION TO ABDOMEN X5 COVERED WITH DERMABOND, DRY, INTACT. ABDN SOFT AND ROUND. IVF D5 NS AT 60ML/HR RECONNECTED TO RIGHT HAND IV SITE. ON CLEAR LIQUID DIET. PATIENT AND FAMILY MADE AWARE PLAN OF CARE. CALL LIGHT PLACED WITHIN EASY REACH. SIDERAILS UP X2.
[2019-05-20 11:22] LABS: BILIRUBIN DIRECT 0.11 mg/dL (0.0-0.2); BILIRUBIN TOTAL 0.58 mg/dL (0.20-1.00); TOTAL PROTEIN, SERUM 7.3 g/dL (6.4-8.2)
[2019-05-20 11:52] VITALS: BP 122/55
--- NOTE | 2019-05-20 11:57 | NUR ---
FSBS =332, PATIENT STILL DROWSY. IVF D5NS DISCONTINUED. IVF NS AT 60ML/HR INFUSING WELL. WILL CONTINUE TO MONITOR.
--- NOTE | 2019-05-20 14:00 | NUR ---
AWAKE,ALERT, ORIENTED X4. TOLERATED TO CLEAR LIQUID DIET. STATED NO PAIN AT THIS TIME. ABDN SOFT AND ROUND, INCISIONS SITE X5 DRY/INTACT. FAMILY AT BEDSIDE. IVF NS TO RT HAND INFUSING WELL.
--- NOTE | 2019-05-20 15:30 | NUR ---
ASSISTED TO BATHROOM, NO ANY DISTRESS NOTED, VOIDED X1. STATED PAIN IS TOLERABLE, DENIES NAUSEA, REFUSED PAIN MEDS OFFERRED.
[2019-05-20 16:30] VITALS: BP 151/64
--- NOTE | 2019-05-20 18:50 | NUR ---
TOLERATED TO CLEAR LIQUID DINNER WELL. DENIES NAUSEA. STATED SURGICAL SITE PAIN IS TOLERABLE. BRP WITH ASSISTANCE. VOIDED X2. DENIES ANY BM OR PASSING GAS. ALL DUE MEDS GIVEN. IVF NS TO RT HAND INFUSING WELL.
--- NOTE | 2019-05-20 19:33 | NUR ---
RECEIVED PT FROM PREVIOUS SHIFT. PT A/OX4. DENIES PAIN. DENIES SOB ON RA. IV PATENT AND INFUSING NS WITH NO S/S OF INFILTRATION. CALL LIGHT WITHIN REACH, BED IN LOW POSITION. FAMILY AT BEDSIDE. WILL CONTINUE TO MONITOR.
[2019-05-20 20:40] VITALS: BP 151/63
--- NOTE | 2019-05-21 00:05 | NUR ---
PT RESTING IN NO ACUTE DISTRESS. RR EVEN AND UNLABORED. CALL LIGHT WITHIN REACH, BED IN LOW POSITION. WILL CONTINUE TO MONITOR.
[2019-05-21 05:57] VITALS: BP 141/63
[2019-05-21 07:04] LABS: ALKALINE PHOSPHATASE 95 U/L (46-116); ALT/SGPT 50 U/L (14-59); AST/SGOT 29 U/L (15-37); BILIRUBIN TOTAL 0.62 mg/dL (0.20-1.00); CALCIUM 8.5 mg/dL (8.5-10.1); CARBON DIOXIDE 23.7 mmol/L (21-32); CHLORIDE SERUM 104 mmol/L (98-107); CREATININE SERUM 0.7 mg/dL (0.6-1.0); GFR1 > 60 mL/min; GLUCOSE SERUM 238 mg/dL (74-106); POTASSIUM SERUM 3.6 mmol/L (3.5-5.1); SODIUM SERUM 139 mmol/L (136-145)
--- NOTE | 2019-05-21 07:05 | NUR ---
SEEN RESTING WITH EYES CLOSED. BREATHING E/U ON ROOM AIR. IVF NS TO RIGHT HAND AT 60ML/HR INFUSING WELL. CALL LIGHT NOTED PLACED WITHIN EASY REACH. SIDERAILS UP X2. WILL CONTINUE TO MONITOR.
[2019-05-21 07:08] LABS: BASOPHIL % 0.2 % (0-2); PLATELET COUNT 370 x10^3mcL (130-400); RED CELL DISTRIBUTION WIDTH 13.7 % (11.5-14.5)
[2019-05-21 07:10] LABS: ALBUMIN 2.9 g/dL (3.4-5.0)
[2019-05-21 08:05] VITALS: BP 139/64
--- NOTE | 2019-05-21 09:35 | NUR ---
STATED HAVING PAIN TO SURGICAL SITE 8/10 ON PAIN SCALE, MORPHINE 2MG IVP GIVEN, NO ADVERSE REACTION NOTED, WILL CONTINUE TO MONITOR.
--- NOTE | 2019-05-21 10:00 | NUR ---
STATED PAIN IS RELIEF. DENIES PASSING GAS STATED JUST BURPING. ENCORUAGED TO AMBULATE.
[2019-05-21 11:48] VITALS: BP 128/56
--- NOTE | 2019-05-21 13:00 | NUR ---
HYPOACTIVE BS. STATED PAIN IS TOLERABLE AT THIS TIME. ENCOURAGED TO AMBULATED.
--- NOTE | 2019-05-21 13:40 | NUR ---
REGINE BOCANEGRA INPLACE. WALKLING ON THE HALLWAY ACCOMPANIED BY . NO ANY DISTRESS NOTED.
--- NOTE | 2019-05-21 14:44 | NUR ---
COMPLAINTS OF SURGICAL SITE PAIN 04/19, REFUSED NORCO OFFERRED, MORPHINE 2MG IVP SLOWLY GIVEN, NO ADVERSE REACTION NOTED. CALL LIGHT REINSTRUCTED AND PLACED WITHIN EASY REACH. SIDERAILS UP X2.
--- NOTE | 2019-05-21 15:00 | NUR ---
STATED PAIN IS BETTER. FAMILY AT BEDSIDE.
[2019-05-21 16:37] VITALS: BP 126/65
--- NOTE | 2019-05-21 17:15 | NUR ---
NO ANY DISTRESS THROUGHOUT SHIFT. VSS. AMBULATORY WELL TO BATHROOM AND ON THE HALLWAY. DENIES HAVING ANY BM OR PASSING GAS STATED JUST BURPING. DENIES NAUSEA. TOLERATING TO CLEAR LIQUID DIET WELL. IVF NS CONTINUED AT 60ML/HR TO RT HAND IV SITE.
--- NOTE | 2019-05-21 19:31 | NUR ---
RECEIVED PT FROM PREVIOUS SHIFT. PT A/OX4. DENIES SOB ON RA. IV PATENT AND INFUSING WELL WITH NO S/S OF INFILTRATOIN. FAMILY AT BEDSIDE. CALL LIGHT WITHIN REACH, BED IN LOW POSITION. WILL CONTINUE TO MONITOR.
--- NOTE | 2019-05-21 21:01 | NUR ---
PT C/O PAIN AND NAUSEA. MEDICATED PRN PER EMAR. WILL CONTINUE TO MONITOR.
[2019-05-21 21:23] VITALS: BP 101/62
--- NOTE | 2019-05-22 00:22 | NUR ---
PT RESTING IN NO ACUTE DISTRESS. RR EVEN AND UNLABORED. CALL LIGHT WITHIN REACH, BED IN LOW POSITION. WILL CONTINUE TO MONITOR.
[2019-05-22 06:09] VITALS: BP 123/43
[2019-05-22 06:13] LABS: BASOPHIL % 0.5 % (0-2); PLATELET COUNT 367 x10^3mcL (130-400); RED CELL DISTRIBUTION WIDTH 13.7 % (11.5-14.5)
[2019-05-22 06:40] LABS: CALCIUM 8.2 mg/dL (8.5-10.1); CARBON DIOXIDE 23.7 mmol/L (21-32); CHLORIDE SERUM 104 mmol/L (98-107); CREATININE SERUM 0.6 mg/dL (0.6-1.0); GFR1 > 60 mL/min; GLUCOSE SERUM 240 mg/dL (74-106); POTASSIUM SERUM 3.5 mmol/L (3.5-5.1); SODIUM SERUM 139 mmol/L (136-145)
--- NOTE | 2019-05-22 08:05 | NUR ---
RECEIVED PATIENT FROM NIGHT NURSE. AWAKE, ALERT AND ORIENTED. IV INFUSING NS AT 60 ML/HR. ON CLEAR LIQUID DIET. TOLERATING WITHOUT NAUSEA AT PRESENT. PATIENT ENCOURAGED TO TAKE PO PAIN MEDICATION INSTEAD OF IV MORPHINE BUT SAYS THAT SHE IS AFRAID OF PO MEDS CAUSING NAUSEA. REFUSING NORCO OR TYLANOL AT PRESENT. ABDOMEN DISTENDED WITH HYPOACTIVE BOWEL MOVEMENTS. REPROTS PASSING GAS. PATIENT ENCOURAGED TO AMBULATE AND USE INSENTIVE SPIROMETER.
[2019-05-22 08:09] VITALS: BP 122/53
--- NOTE | 2019-05-22 09:33 | NUR ---
SEEN BY KHURRAM DEVINE. NEW ORDERS RECEIVED. PATIENT GIVEN MYLACON PO FOR RELIEF OF ABDOMINAL GAS/DISTENTION.
--- NOTE | 2019-05-22 12:04 | NUR ---
BLOOD GLUCOSE LEVEL 223. GIVEN REGULAR INSULIN 6 UNITS PER SLIDING SCALE. PATIENT HAS AMBULATED IN HALLWAY. NOW SITTING IN CHAIR. DECLINDED ANY PAIN MEDICATION.
[2019-05-22 13:26] VITALS: BP 122/53
--- NOTE | 2019-05-22 14:33 | NUR ---
PATIENT SITTING IN CHAIR. DENIES ANY PAIN. REPORTS SOME RELIEF OF ABDOMINAL BLOATING WITH SIMETHACONE.
[2019-05-22 16:00] VITALS: BP 131/87
--- NOTE | 2019-05-22 17:14 | NUR ---
SEEN BY DR FREGOSO. DIET ADVANCED TO REGULAR. SALINE LOCK IV.
--- NOTE | 2019-05-22 18:17 | NUR ---
VSS. AFEBRILE. DENIES ANY PAIN. AMBULATORY. AMBULATION AND USE OF INSENTIVE SPIROMETER ENCOURAGED. DIET HAS BEEN ADVANCED TO REGULAR. WILL ENDORSE CARE TO NIGHT NURSE.
--- NOTE | 2019-05-22 20:08 | NUR ---
PT. RESTING COMFORTABLY IN BED. AWAKE, ALERT, ORIENTED X4. DENIES HEADACHE OR DIZZINESS. BREATH SOUNDS CLEAR THROUGHOUT LUNG FLOWERS, RESP. EVEN, UNLABORED. NO SOB NOTED. PT. WITH I.S, ENCOURAGED TO CONTINUE TO USE. ABD. SOFT AND ROUND, BOWEL SOUNDS ACTIVE. DENIES NAUSEA. PT. STATED THAT SHE HAS SOME MILD ABD. DISCOMFORT, BUT DENIES THE NEED FOR PAIN MEDICATION. DERMABOND X4 TO ABD, WILLIAM, CDI. IV HEPLOCKED, SITE INTACT. CALL LIGHT WITHIN REACH.
[2019-05-22 20:26] VITALS: BP 135/61
--- NOTE | 2019-05-22 23:23 | NUR ---
PT. REQUESTING MEDICATION FOR SLEEP. RECEIVED ORDERED FOR PRN AMBIEN 5MG PO. MEDICATION GIVEN ORDERED. WILL MONITOR.
--- NOTE | 2019-05-23 00:24 | NUR ---
PT. RESTING QUIETLY, EYES CLOSED, NO APPEARANT SIGNS OF PAIN OR DISTRESS. DERMABOND SITE REMAINS CDI. CALL LIGHT WITHIN REACH.
--- NOTE | 2019-05-23 05:50 | NUR ---
PT. AWAKE, DERMABOND INTACT. PT. C/O ABD. PAIN, DENIES NEED OR REFUSES PAIN MEDICATION. STATED THAT SHE WILL BE OKAY FOR NOW. IV SITE REMAINS INTACT. WILL ENDORSE PT. CARE TO INCOMING NURSE.
[2019-05-23 05:52] VITALS: BP 137/65
[2019-05-23 06:37] LABS: BASOPHIL % 0.4 % (0-2); PLATELET COUNT 381 x10^3mcL (130-400); RED CELL DISTRIBUTION WIDTH 13.8 % (11.5-14.5)
[2019-05-23 06:52] LABS: CALCIUM 8.6 mg/dL (8.5-10.1); CARBON DIOXIDE 26.6 mmol/L (21-32); CHLORIDE SERUM 105 mmol/L (98-107); CREATININE SERUM 0.6 mg/dL (0.6-1.0); GFR1 > 60 mL/min; GLUCOSE SERUM 128 mg/dL (74-106); POTASSIUM SERUM 3.1 mmol/L (3.5-5.1); SODIUM SERUM 141 mmol/L (136-145)
--- NOTE | 2019-05-23 07:00 | NUR ---
RECEIVED REPORT FROM FACUNDO GOFF RN, PT IN NO ACUTE RESP DISTRESS
--- NOTE | 2019-05-23 07:15 | NUR ---
PT IN CHAIR, IN NO ACUTE RESP DISTRESS, VERBAL, NO FACIAL DROOP/SLURRED SPEECH, PERRLA, NO REDNESS/DRAINGE, RESP EVEN AND NON-LABORED, CHEST RISE SYMMETRICALLY, MEDSURG, ABD SOFT AND NON-TENDER TO TOUCH, BS ACTIVE X 4, ABD BINDER IN PLACE, DRESSING CDI, AMBULATORY, CONTINENT, BRP, PALP PULSES, CAP REFILL < 2 SECS, SKIN W.D.C, DENIED PAIN/DISCOMFORT/PRESSURE, DENIED N/V/D/DISSINESS, IV HEPLOCKED PATENT AND NO INFILTRATION NOTED, ALL NEEDS ADDRESSED AT THIS TIME, SAFETY PROTOCOL FOLLOWED, CONTINUE TO MONITOR
[2019-05-23 08:42] VITALS: BP 147/75
--- NOTE | 2019-05-23 09:37 | NUR ---
PT IN NO ACUTE RESP DISTRESS, AM MED GIVEN PER MD ORDERED VIA EMAR, TAKEN WELL, NO ASE NOTED AT THIS TIME, SAFETY MONITOR, CONTINUE TO MONITOR
[2019-05-23 10:20] VITALS: BP 147/75
--- NOTE | 2019-05-23 12:05 | NUR ---
IV REMOVED, NO ACTIVE BLEEDING, IV CATH TIP INTACT
--- NOTE | 2019-05-23 12:43 | NUR ---
PT IN NO ACUTE RESP DISTRESS, FAMILY AT BEDSIDE, DC PAPER SIGNED AND KEPT IN CHART, PT VERBALIZED UNDERSTANDING APPOINTMENT W/ SURGEON AND PCP AND WILL F/U RESPONSIBLY, PIC OF SURGICAL SITE TAKEN AND KEPT IN CHART, NO S/S OF INFECTION NOTED AT THIS TIME , PT EDUCATED A/B S/S OF WOUND INFECTION, VERBALLY UNDERSTANDING, QUESTIONS ASKED AND ANSWERED, NO FURTHER CONCERS NEED WHEN ASKED, AMBULATORY, PT ASSISTED TO LOBBY VIA WC BY NURSING STAFFS, FAMILY P/U PT HOME.
== END 2019-05-23 12:51 | disposition home or self-care (01) | DRG 263 ==
LOC: ED 12:34 → MU 15:27
PROVIDERS: Emergency Medicine; Surgery; ADMIT Internal Medicine
PROC: 0FT44ZZ Resection of Gallbladder, Percutaneous Endoscopic Approach (ICD-10-PCS; principal; 2019-05-20 08:00)
DX: K80.62 Calculus of gallbladder and bile duct with acute cholecystitis without obstruction (principal); E11.51 Type 2 diabetes mellitus with diabetic peripheral angiopathy without gangrene; E11.65 Type 2 diabetes mellitus with hyperglycemia; E44.1 Mild protein-calorie malnutrition; I10 Essential (primary) hypertension; I25.10 Atherosclerotic heart disease of native coronary artery without angina pectoris; E78.5 Hyperlipidemia, unspecified; I25.5 Ischemic cardiomyopathy; E78.00 Pure hypercholesterolemia, unspecified; J44.9 Chronic obstructive pulmonary disease, unspecified; D72.829 Elevated white blood cell count, unspecified; Z68.28 Body mass index [BMI] 28.0-28.9, adult; Z79.84 Long term (current) use of oral hypoglycemic drugs; Z88.6 Allergy status to analgesic agent; Z90.710 Acquired absence of both cervix and uterus; I25.2 Old myocardial infarction; Z95.5 Presence of coronary angioplasty implant and graft; Z86.73 Personal history of transient ischemic attack (TIA), and cerebral infarction without residual deficits; Z83.3 Family history of diabetes mellitus; Z87.440 Personal history of urinary (tract) infections; Z87.891 Personal history of nicotine dependence
CPT/HCPCS: 82962; 84439; G0378; J0330; J0690; J1815; J1885; J2175; J2250; J2270; J2405; J2704; J2710; J2765; J3010; J3490; J7030; J7042; Q0092

== ENCOUNTER 2019-09-22 10:05 | Emergency (ER) | payer OTHER ==
[~2019-09-22] VITALS: Ht 157.5 cm; Wt 67.6 kg
[~2019-09-22 10:05] MED LIST changes: +FUROSEMIDE20 MG PO; +PROTONIX40 MG PO; +ROBAXIN500 MG PO
[2019-09-22 10:17] VITALS: Ht 157.5 cm; Wt 67.6 kg
[2019-09-22 10:43] LABS: BASOPHIL % 0.3 % (0-2); RED CELL DISTRIBUTION WIDTH 14.1 % (11.5-14.5)
[2019-09-22 10:50] LABS: CALCIUM 9.4 mg/dL (8.5-10.1); CARBON DIOXIDE 22.8 mmol/L (21-32); PLATELET COUNT 412 x10^3mcL (130-400); POTASSIUM SERUM 3.4 mmol/L (3.5-5.1)
[2019-09-22 10:55] LABS: BILIRUBIN TOTAL 0.72 mg/dL (0.20-1.00); TOTAL PROTEIN, SERUM 9.1 g/dL (6.4-8.2)
[2019-09-22 13:20] VITALS: BP 123/73
== END 2019-09-22 13:20 | disposition home or self-care (01) ==
LOC: ED 10:05
DX: A08.4 Viral intestinal infection, unspecified (principal); I49.3 Ventricular premature depolarization; D72.829 Elevated white blood cell count, unspecified; E11.65 Type 2 diabetes mellitus with hyperglycemia; E87.1 Hypo-osmolality and hyponatremia; E87.6 Hypokalemia; R16.0 Hepatomegaly, not elsewhere classified; I10 Essential (primary) hypertension
CPT/HCPCS: J3475; J7030; Q0092; Q9967

== ENCOUNTER 2019-12-24 07:16 | Emergency (ER) | payer OTHER ==
[~2019-12-24] VITALS: Ht 160 cm; Wt 68.9 kg
[2019-12-24 07:45] VITALS: Ht 160 cm; Wt 68.9 kg
[2019-12-24 09:12] VITALS: BP 164/59
== END 2019-12-24 09:12 | disposition home or self-care (01) ==
LOC: ED 07:16
DX: T78.40XA Allergy, unspecified, initial encounter (principal); I10 Essential (primary) hypertension; E11.9 Type 2 diabetes mellitus without complications; Z90.49 Acquired absence of other specified parts of digestive tract; Z90.710 Acquired absence of both cervix and uterus; Z88.8 Allergy status to other drugs, medicaments and biological substances; X58.XXXA Exposure to other specified factors, initial encounter
CPT/HCPCS: J0171; J1200; J2930

== ENCOUNTER 2020-04-05 19:27 | Emergency (ER) | payer OTHER ==
[~2020-04-05] VITALS: Ht 157.5 cm; Wt 68.0 kg
[2020-04-05 19:44] VITALS: Ht 157.5 cm; Wt 68.0 kg
[2020-04-05 22:35] VITALS: BP 136/81
== END 2020-04-05 22:35 | disposition home or self-care (01) ==
LOC: ED 19:27
DX: E11.40 Type 2 diabetes mellitus with diabetic neuropathy, unspecified (principal); J44.9 Chronic obstructive pulmonary disease, unspecified; I10 Essential (primary) hypertension; E11.9 Type 2 diabetes mellitus without complications; E78.00 Pure hypercholesterolemia, unspecified; Z88.8 Allergy status to other drugs, medicaments and biological substances